=== PATIENT | female | born 2000 | race Hispanic/Latino ===

== ENCOUNTER 2021-02-13 22:24 | Emergency (ER) | payer SELFPAY ==
[~2021-02-13] VITALS: Ht 172.7 cm; Wt 101.0 kg
[~2021-02-13 22:24] MED LIST: ALBUTEROL SULF8.5 GM IH; FLOVENT HFA12 G1 INH
[2021-02-13] MEDS ORDERED: ALBUTEROL/IPRATROPIUM 3 ML NEB NEB ONE (23:15)
[2021-02-13] MEDS ORDERED: ALBUTEROL/IPRATROPIUM 3 ML NEB ONE (23:17)
[2021-02-14] MEDS ORDERED: ALBUTEROL/IPRATROPIUM 3 ML NEB NEB ONE (01:00)
[2021-02-14] MEDS ORDERED: PREDNISONE 20 MG TAB PO ONE (01:00)
[2021-02-14] MEDS ORDERED: ALBUTEROL/IPRATROPIUM 3 ML NEB ONE (01:25)
[2021-02-14] MEDS ORDERED: PREDNISONE 20 MG TAB ONE (01:25)
[2021-02-14] MEDS ORDERED: VENTOLIN HFA18 GM INH (01:32)
[2021-02-14] MEDS ORDERED: PREDNISONE20 MG PO (01:35)
[2021-02-14] MEDS ORDERED: GUAIFEN-CODEINE5 ML PO (01:36)
== END 2021-02-14 02:02 | disposition home or self-care (01) ==
LOC: FSED 23:10
DX: R06.02 Shortness of breath (principal); R05 Cough; J45.901 Unspecified asthma with (acute) exacerbation; J06.9 Acute upper respiratory infection, unspecified
CPT/HCPCS: 71046; 81025; 99283; J7512

== ENCOUNTER 2022-06-12 22:27 | Emergency (ER) | payer OTHER ==
[~2022-06-12] VITALS: Ht 172.7 cm; Wt 100.7 kg
[~2022-06-12 22:27] MED LIST changes: +GUAIFEN-CODEINE5 ML PO; +PREDNISONE20 MG PO; +VENTOLIN HFA18 GM INH
[2022-06-12] MEDS ORDERED: PREDNISONE 20 MG TAB PO ONE (22:45)
[2022-06-12] MEDS ORDERED: ALBUTEROL/IPRATROPIUM 3 ML NEB NEB ONE ×3 (22:45)
[2022-06-12] MEDS ORDERED: PREDNISONE 20 MG TAB ONE (22:53)
[2022-06-13] MEDS ORDERED: IBUPROFEN800 MG PO (00:29)
[2022-06-13] MEDS ORDERED: ALBUTEROL2.5 MG/0.5 INH (00:29)
[2022-06-13] MEDS ORDERED: IPRATROPIU0.2 MG/1 M INH (00:29)
[2022-06-13] MEDS ORDERED: BROMFED DM COU118 ML PO (00:29)
[2022-06-13] MEDS ORDERED: PREDNISONE20 MG PO (00:29)
[2022-06-13 00:38] VITALS: BP 122/94
== END 2022-06-13 00:43 | disposition home or self-care (01) ==
LOC: ER 22:29
DX: R05.9 Cough, unspecified (principal); J20.9 Acute bronchitis, unspecified; J45.901 Unspecified asthma with (acute) exacerbation; Z20.822 Contact with and (suspected) exposure to COVID-19
CPT/HCPCS: 71045; 94799; 99283; J7512; U0002